=== PATIENT | male | born 2000 | race Caucasian/White ===

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

== ENCOUNTER 2021-04-18 17:47 | Emergency (ER) | payer OTHER ==
[~2021-04-18] VITALS: Ht 177.8 cm; Wt 99.8 kg
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
--- NOTE | 2021-04-18 19:12 | NUR ---
REPORT GIVEN TO DANIELA IGNACIO RN FOR BRITNI
--- NOTE | 2021-04-18 19:14 | NUR ---
REC'D REPORT FROM PADMA MILTON FOR BRITNI
[2021-04-18] MEDS ORDERED: IV NS 0.9% 1,000 ML IV ONE (19:30)
[2021-04-18] MEDS ORDERED: diphenhydrAMINE HCL 50 MG/ML VIAL IV ONE (19:30)
[2021-04-18] MEDS ORDERED: KETOROLAC TROMETHAMINE INJ 30 MG/ML VIAL IV ONE (19:30)
[2021-04-18] MEDS ORDERED: METOCLOPRAMIDE HCL 10 MG/2 ML VIAL IV ONE (19:30)
[2021-04-18] MEDS ORDERED: KETOROLAC TROMETHAMINE 15 MG/ML VIAL ONE (19:31)
[2021-04-18] MEDS ORDERED: METOCLOPRAMIDE HCL 10 MG/2 ML VIAL ONE (19:31)
[2021-04-18] MEDS ORDERED: diphenhydrAMINE HCL 50 MG/ML VIAL ONE (19:31)
--- NOTE | 2021-04-18 20:24 | NUR ---
Patient discharged to home in stable condition. Written and verbal after care instructions given. Patient verbalizes understanding of instruction. Pt did not wish to wait for paperwork and left without signing.IV removed. Catheter intact and site benign. Pressure and 4x4 applied to site. No bleeding noted. Pt ambulatory with a steady gait.
[2021-04-18 22:17] VITALS: BP 131/84
== END 2021-04-18 20:24 | disposition home or self-care (01) ==
LOC: ER 17:56
DX: R51.9 Headache, unspecified (principal)
CPT/HCPCS: 96361; 96374; 96375; 99284; J1200; J1885; J2765; J7030 ×2

== ENCOUNTER 2021-11-03 01:34 | Emergency (ER) | payer OTHER ==
[~2021-11-03] VITALS: Ht 177.8 cm; Wt 99.8 kg
--- NOTE | 2021-11-03 01:41 | NUR ---
BIBS C/O ASTHMA ATTACK X2 HOURS +WHEEZING. PATIENT ALERT AND ORIENTED X4. AMBULATORY, AND IN BED 02 SEEN BY MD AT TRIAGE.
[2021-11-03] MEDS ORDERED: predniSONE 20 MG TABLET ONE (01:43)
[2021-11-03] MEDS ORDERED: ALBUTEROL FS 2.5 MG/3 ML VIAL.NEB ONE (01:50)
[2021-11-03] MEDS ORDERED: IPRATROPIUM NEB FS 0.5 MG/2.5 ML AMPUL.NEB ONE (01:50)
--- NOTE | 2021-11-03 01:52 | NUR ---
RT AT BEDSIDE
[2021-11-03] MEDS ORDERED: ALBUTEROL FS 2.5 MG/3 ML VIAL.NEB NEB ONE (02:00)
[2021-11-03] MEDS ORDERED: predniSONE 20 MG TABLET PO ONE (02:00)
[2021-11-03] MEDS ORDERED: IPRATROPIUM NEB FS 0.5 MG/2.5 ML AMPUL.NEB NEB ONE (02:00)
[2021-11-03] MEDS ORDERED: PRED20TA PO (03:03)
[2021-11-03] MEDS ORDERED: HYDR28.32 TP (03:03)
[2021-11-03] MEDS ORDERED: ALBU18HF2 INH (03:03)
--- NOTE | 2021-11-03 03:23 | NUR ---
Patient discharged to home in stable condition. Written and verbal after care instructions given. Patient verbalizes understanding of instruction.
[2021-11-03 03:55] VITALS: BP 125/79
== END 2021-11-03 03:30 | disposition home or self-care (01) ==
LOC: ER 01:35
DX: J45.901 Unspecified asthma with (acute) exacerbation (principal); J45.909 Unspecified asthma, uncomplicated
CPT/HCPCS: 94644; 99285; J7512